=== PATIENT | female | born 1955 | race Hispanic/Latino ===

== ENCOUNTER 2025-01-24 04:46 | Emergency (ER) | payer MEDICARE, OTHER ==
[~2025-01-24] VITALS: Ht 157.5 cm; Wt 62.6 kg
[~2025-01-24 04:46] MED LIST: ATENOLOL50 MG PO; LEXAPRO10 MG PO
[2025-01-24 05:27] VITALS: TEMP 98.4
[2025-01-24 06:19] LABS: WHITE BLOOD COUNT 6.32 x10e3/uL (4.8-10.8)
[2025-01-24 06:20] LABS: BASOPHILS # (AUTO) 0.1 (0.0-0.1); BASOPHILS % 0.8 % (0.0-1.0); EOSINOPHILS % 0.6 % (0.0-6.0); HEMATOCRIT 39.6 % (34.2-44.1); HEMOGLOBIN 13.9 g/dL (12.0-16.0); LYMPHOCYTES # (AUTO) 1.8 (1.0-3.2); LYMPHOCYTES % 27.7 % (18.0-39.1); MEAN CORPUSCULAR HEMOGLOBIN 29.9 pg (28-32); MEAN CORPUSCULAR HGB CONC 35.1 g/dL (31-35); MEAN CORPUSCULAR VOLUME 85.2 fL (81-99); MONOCYTES # (AUTO) 0.5 (0.2-0.8); MONOCYTES % 7.9 % (4.4-11.3); NEUTROPHILS % 62.8 % (38.7-80.0); PLATELET COUNT 292 x10e3/uL (140-360); RED BLOOD COUNT 4.65 x10e6/uL (3.6-5.1); RED CELL DISTRIBUTION WIDTH 12.5 % (11.7-14.4)
[2025-01-24 06:44] LABS: BILIRUBIN,URINE NEGATIVE (NEGATIVE); CLARITY,URINE CLEAR (CLEAR); COLOR,URINE YELLOW (YELLOW); GLUCOSE, URINE NEGATIVE (NEGATIVE); KETONES,URINE NEGATIVE (NEGATIVE); LEUKOCYTE ESTERASE ,URINE TRACE (NEGATIVE); NITRITE,URINE NEGATIVE (NEGATIVE); PH,URINE 7.5 (5 - 7); PROTEIN,URINE DIPSTICK NEGATIVE (NEGATIVE); URINE UROBILINOGEN 0.2 mg/dL (0.2 - 1)
[2025-01-24 06:46] LABS: BACTERIA,URINE FEW /HPF; EPITHELIAL CELLS,URINE FEW /LPF; RBC,URINE 0-5 /HPF (0-5); WBC,URINE (MAN) 0-5 /HPF (0-5)
[2025-01-24 06:47] LABS: POTASSIUM 2.9 mmol/L (3.5-5.1)
[2025-01-24 06:48] LABS: ALBUMIN 4.4 g/dL (3.5-5.0); ANION GAP 15.9 mmol/L (8-16); BILIRUBIN,TOTAL 0.7 mg/dL (0.2-1.2); CALCIUM 9.5 mg/dL (8.4-10.2); CREATININE, SERUM 0.73 mg/dL (0.57-1.11); TOTAL PROTEIN 8.7 g/dL (6.5-8.1)
[2025-01-24] MEDS: KCL 20 MEQ PACKET/ ORAL SOLN PO STA (07:23)
[2025-01-24] MEDS: POTASSIUM CHLORIDE 20MEQ/100ML 100 ML IV ONE (07:24)
[2025-01-24] MEDS: SODIUM CHLORIDE 0.9% 1000ML 1,000 ML IV STA (07:49)
[2025-01-24 09:00] VITALS: PULSE 67; RESP 17; O2SAT 100
== END 2025-01-24 09:55 | disposition home or self-care (01) ==
LOC: ER 05:30
DX: R53.1 Weakness (principal); E87.6 Hypokalemia; R42 Dizziness and giddiness
CPT/HCPCS: 36415; 70450; 71045; 80053; 81001; 84484; 85025; 93005; 99284; J3480; J7030